=== PATIENT | female | born 1970 | race Caucasian/White ===

== ENCOUNTER 2018-10-05 23:42 | Emergency (ER) | payer OTHER ==
[~2018-10-05] VITALS: Ht 165.1 cm; Wt 76.2 kg
[2018-10-05 23:54] VITALS: Ht 165.1 cm; Wt 76.2 kg
[2018-10-06] MEDS ORDERED: KETOROLAC 15 MG INJ IV STA (00:37)
[2018-10-06] MEDS ORDERED: SOD CHLORIDE 0.9% 1,000 ML IV STA (00:37)
--- NOTE | 2018-10-06 03:00 | ERD ---
ER Documentation Chief Complaint Chief Complaint L groin radiating to L flank x 1week HPI 48-year-old woman complaining of left lower quadrant abdominal pain daily times 1 week. Pain radiates to her left groin, she denies dysuria, no fevers or chills, no chest pain or shortness of breath, no blood per rectum or melena. Patient states she has had this abdominal pain in the past ROS All systems reviewed and are negative except as per history of present illness. Allergies Allergies: Coded Allergies: Penicillins (Verified Allergy, Unknown, 10/05/18) aspirin (Verified Allergy, Unknown, 10/05/18) PMhx/Soc History of Surgery: Yes (lap star, hysterectomy, lipo w/ complications, etc) Anesthesia Reaction: No Hx Cardiac Disorders: Yes (htn) Hx Miscellaneous Medical Probl: Yes (MABRY's, chronic back, gastritis, ) Hx Alcohol Use: Yes (occasionally) Hx Substance Use: No Hx Tobacco Use: No Smoking Status: Never smoker FmHx Family History: No diabetes Physical Exam Vitals Vital Signs Date Temp Pulse Resp B/P (MAP) Pulse Ox O2 O2 Flow FiO2 Time Delivery Rate 10/05/18 97.0 76 18 121/67 100 23:54 (85) Physical Exam GENERAL: Well-developed, well-nourished, well-hydrated, in no apparent distress, looks nontoxic in appearance HEENT: Moist mucous membranes, pink conjunctiva, no cervical spine tenderness or step-off deformities, no goiter, no jaundice or icterus, extraocular movements intact without pain. No submandibular induration, and no pharyngeal erythema NEURO: Alert and oriented 3, cranial nerves II through XII intact bilaterally, pupils equal round reactive to light, no focal deficits or facial asymmetry, sensation intact distally Strength 5/5 in upper and lower extremities bilaterally CARDIAC: Regular rate and rhythm, no murmurs rubs or gallops LUNGS: Clear bilaterally no wheezing crackles or stridor ABDOMEN: Soft nontender, no guarding, no rigidity, no rebound, no psoas sign no obturator sign. Normoactive bowel sounds SKIN: Warm and dry to touch, no abrasions, contusions, or hematomas, no lacerations, no ecchymosis, no target lesions, and without ulcers EXTREMITIES: No clubbing cyanosis or edema, calves are bilaterally symmetrical, no Homans sign, no popliteal cord sign. Distal pulses equal and bilateral PSYCH: Normal affect without agitation or irritability Result Diagram: 10/06/18 0045 10/06/18 0045 Results 24 hrs Laboratory Tests Test 10/06/18 00:16 10/06/18 00:18 10/06/18 00:45 Bedside Urine pH (LAB) 7.0 Bedside Urine Protein (LAB) Negative Bedside Urine Glucose (UA) Negative Bedside Urine Ketones (LAB) Negative Bedside Urine Blood Negative Bedside Urine Nitrite (LAB) Negative Bedside Urine Leukocyte Esterase Negative (L POC Beta HCG, Qualitative NEGATIVE White Blood Count 5.4 10^3/ul Red Blood Count 4.66 10^6/ul Hemoglobin 14.8 g/dl Hematocrit 43.5 % Mean Corpuscular Volume 93.3 fl Mean Corpuscular Hemoglobin 31.8 pg Mean Corpuscular 34.0 g/dl Hemoglobin Concent Red Cell Distribution Width 11.6 % Platelet Count 291 10^3/UL Mean Platelet Volume 9.7 fl Immature Granulocytes % 0.200 % Neutrophils % 43.9 % Lymphocytes % 42.3 % Monocytes % 8.5 % Eosinophils % 4.2 % Basophils % 0.9 % Nucleated Red Blood Cells % 0.0 /100WBC Immature Granulocytes # 0.010 10^3/ul Neutrophils # 2.4 10^3/ul Lymphocytes # 2.3 10^3/ul Monocytes # 0.5 10^3/ul Eosinophils # 0.2 10^3/ul Basophils # 0.1 10^3/ul Nucleated Red Blood Cells # 0.0 10^3/ul Urine Color YELLOW Urine Clarity CLEAR Urine pH 6.0 Urine Specific [place] 1.012 Urine Ketones NEGATIVE mg/dL Urine Nitrite NEGATIVE mg/dL Urine Bilirubin NEGATIVE mg/dL Urine Urobilinogen NEGATIVE mg/dL Urine Leukocyte Esterase NEGATIVE Leanne/ul Urine Hemoglobin NEGATIVE mg/dL Urine Glucose NEGATIVE mg/dL Urine Total Protein NEGATIVE mg/dl Sodium Level 139 mmol/L Potassium Level 3.5 mmol/L Chloride Level 99 mmol/L Carbon Dioxide Level 33 mmol/L Anion Gap 7 Blood Urea Nitrogen 14 mg/dl Creatinine 0.67 mg/dl Est Glomerular Filtrat > 60 mL/min Rate mL/min Glucose Level 111 mg/dl Calcium Level 9.4 mg/dl Total Bilirubin 0.2 mg/dl Direct Bilirubin 0.00 mg/dl Indirect Bilirubin 0.2 mg/dl Aspartate Amino Transf (AST/SGOT) 50 IU/L Alanine 50 IU/L Aminotransferase (ALT/SGPT) Alkaline Phosphatase 111 IU/L Total Protein 7.8 g/dl Albumin 4.5 g/dl Globulin 3.30 g/dl Albumin/Globulin Ratio 1.36 Lipase 316 U/L Current Medications Medications Dose Sig/Haley Start Time Status Last (Trade) Ordered Route PRN Stop Time Admin Dose Reason Admin Sodium 1,000 ml @ Q1H STAT 10/06/18 DC 10/06/18 Chloride 1,000 mls/hr IV 00:37 00:43 10/06/18 01:36 Ketorolac 15 mg ONCE STAT 10/06/18 DC 10/06/18 Tromethamine IV 00:37 00:42 (Toradol) 10/06/18 00:38 Procedures/MDM IV line was established patient was placed on ekg monitor tech rhythm strip revealed a sinus rhythm at about 80 bpm with upright P and T waves. Patient was afebrile I administered 1 L normal saline IV and Toradol 15 mg IV x1 CBC and electrolytes were normal, liver function tests were normal, urinalysis was negative for infection. CT scan of the abdomen and pelvis was performed,IMPRESSION: 1. No acute intra-abdominal or intrapelvic pathology. 2. Retained fecal matter present throughout the colon which may reflect constipation. 3. Status post cholecystectomy and hysterectomy. Differential diagnoses considered, included but not limited to acute coronary syndrome, pulmonary embolism, aortic dissection, abdominal aortic aneurysm, sepsis, stroke, meningitis, encephalitis, pneumonia, appendicitis, cholecystitis, bowel obstruction, pyelonephritis, nephrolithiasis, cystitis, as well as metabolic, hematologic, and electrolyte abnormalities. As well as abscess, cellulitis, fractures, and dislocations. Patient feels much better at this time, and vital signs are normal, symptoms have improved. I did give strict instructions to return to the ED if symptoms continue or worsen, patient will otherwise follow-up with primary care physician. Patient understood instructions and agreed to plan. Disclaimer: Inadvertent spelling and grammatical errors are likely due to EHR/dictation software use and do not reflect on the overall quality of patient care. Also, please note that the electronic time recorded on this note does not necessarily reflect the actual time of the patient encounter. Departure Diagnosis: Primary Impression: Abdominal pain Abdominal location: left lower quadrant Qualified Codes: R10.32 - Left lower quadrant pain Additional Impression: Constipation Constipation type: unspecified constipation type Qualified Codes: K59.00 - Constipation, unspecified Condition: Good NAYELI BERRIOS MD Oct 06, 2018 03:00
[2018-10-06] MEDS ORDERED: POLY17PO6 PO (03:02)
[2018-10-06] MEDS ORDERED: DOCU-144 PO (03:02)
[2018-10-06 03:18] VITALS: BP 143/67; PULSE 64; RESP 20
== END 2018-10-06 03:27 | disposition home or self-care (01) ==
LOC: E/R 23:42
DX: K59.00 Constipation, unspecified (principal); R10.2 Pelvic and perineal pain; I10 Essential (primary) hypertension
CPT/HCPCS: 36415; 74176; 80053; 81003; 81025; 83690; 85025; 96361; 96374; J1885; J7030; Z7502